=== PATIENT | female | born 1975 | race Caucasian/White ===

== ENCOUNTER 2019-10-15 01:58 | Outpatient (CLI) | payer OTHER, SELFPAY ==
--- NOTE | 2019-10-15 08:52 | DI.MAMMO_ITS ---
EXAM: MAMMO SCREENING CLINICAL HISTORY: screening, Z12.39 TECHNIQUE: Mammograms were interpreted according to the usual protocol including computer analysis w InfraReDx CAD system, tomosynthesis and C-view imaging. FINDINGS: The breasts are of moderate density with fairly symmetrical distribution of fibroglandular tissue. N o dominant mass or clumped microcalcification is identified in either breast. Current examination is compared with previous examinations including October 2016 and there has been no gross interval collins ge in appearance in comparison with the previous studies. IMPRESSION: No specific evidence of malignancy at this time. Routine screening examinations are suggested at year ly intervals in this age group according to the ACS ACR guidelines. Category 1. Breast density, categ ory B. BI-RADS Cat 1 - Negative. Breast Density - Category B - Scattered areas of fibroglandular density.
[2019-10-15 10:33] LABS: ALT 49 U/L (14-59); AST 17 U/L (15-37); Alkaline Phosphatase 83 U/L (46-116); BUN 12 mg/dL (7-18); Bilirubin, Total 0.5 mg/dL (0.2-1.0); Calcium 9.5 mg/dL (8.5-10.1); Calculated LDL 101 mg/dL; Chloride 105 mmol/L (98-107); Cholesterol 172 mg/dL (<200); Estimated GFR 59.69 (mL/min/1.73m2); Glucose 105 mg/dL (74-106); HDL Cholesterol 31 mg/dL (40-60); Potassium 4.4 mmol/L (3.5-5.1); Sodium 145 mmol/L (136-145); Total Protein 7.6 g/dL (6.4-8.2); Triglyceride 202 mg/dL (<150)
[2019-10-15 10:37] LABS: Hemoglobin A1C 5.9 % (3.8-5.6)
== END 2019-10-15 02:18 ==
PROVIDERS: PCP Nurse Practitioner; Visit Provider Nurse Practitioner
DX: Z12.31 Encounter for screening mammogram for malignant neoplasm of breast (principal); E78.5 Hyperlipidemia, unspecified; R73.03 Prediabetes
CPT/HCPCS: 36415; 77063; 77067; 80053; 80061; 83036

== ENCOUNTER 2022-07-26 03:28 | Emergency (ER) | payer OTHER, SELFPAY ==
--- NOTE | 2022-07-26 03:30 | DI.RAD_ITS ---
Exam(s) XR SHOULDER RT COMPLETE 2+V EXAM: XR SHOULDER RT COMPLETE 2+V CLINICAL HISTORY: fall, pain at prox humerus. TECHNIQUE: 2D digital imaging was performed of the right shoulder. Five images were obtained. AP, Grashey, Y-view and axillary views were obtained. COMPARISON: No exams were available for comparison FINDINGS: BONES: No acute fracture is present. No bony destructive lesion is seen. JOINTS: No dislocation present. There are degenerative changes seen at the acromioclavicular joint. SOFT TISSUE: Normal. IMPRESSION: No acute fracture or dislocation. DATA REPOSITORY: RADIATION DOSE DELIVERED:
[2022-07-26 03:43] VITALS: BP 159/91; PULSE 88; RESP 16; TEMP 37.1; O2SAT 96
[2022-07-26] MEDS: Lidocaine 5% Patch 1 PATCH TP (04:00)
[2022-07-26] MEDS: Ibuprofen 800 MG TAB PO (04:00)
--- NOTE | 2022-07-26 04:12 | ED.GENADUL_ITS ---
Discharge Plan Disposition Patient Disposition: HOME Condition: Good Discharge Details Clinical Impression: Sprain of right shoulder Primary Care Provider: Charity Xavier ED Provider: Jose Antonio Holland Home Meds and New Rx's Prescriptions: No Action atorvastatin 40 mg tablet 40 mg PO DAILY Qty: 90 0RF bupropion HCl [Wellbutrin XL] 300 mg tablet extended release 24 hr 300 mg PO QAM Qty: 90 0RF omeprazole 20 mg capsule,delayed release(DR/EC) 20 mg PO DAILY Qty: 90 0RF Discharge Instructions Instructions: Shoulder Sprain (ED) Additional Instructions: At this time there is no clear evidence of fracture on your x-ray. I suspect you have have irritation of your bursa and contusion of your bone and irritation of the muscles and tendons around your shoulder. Please use ice, Tylenol and Motrin as needed for pain. It will likely take a few weeks for your symptoms to resolve. Please follow-up closely with your environmental education specialist if your symptoms persist or worsen. Avoid any aggressive use movement or lifting with the arm. Make sure that your arm continually moves of the next few days to prevent any frozen shoulder syndrome. If you notice any worsening of your symptoms, or any new symptoms such as vomiting, diarrhea, fever, chills, shortness of breath, chest pain, numbness, weakness, or fainting , please return immediately to the emergency department for reevaluation. Please follow up with your primary care provider as soon as possible for reassessment and reevaluation. As always, it was a pleasure participating in your medical care today. Stand Alone Forms: Work Release Referrals: Charity Xavier, LOUIE [Primary Care Provider] - Medical Decision Making This is a pleasant 47-year-old female who is right-hand dominant who presents today for right shoulder pain. About 6 hours prior to arrival the patient was walking her dog when the dog suddenly pulled and the patient fell forward landing on her right shoulder onto the steps. She only hit her right shoulder. She had some mild pain at that time, and did hear a pop on impact. She is able to move her arm well though, and did not think much of it. However over the next few hours the pain notably worsened, specifically with movement. She did take Tylenol but this did not improve her symptoms at all. As the night went on her symptoms worsened, so she came to the ER for further assessment. When her arm is at rest the pain is mild. She denies any numbness or tingling. No chest pain or head pain. No other complaints at this time. Exam demonstrates tenderness at the proximal component of the humerus. Pain notably worsened with external rotation and abduction. No signs of significant deformity otherwise. Distal exam demonstrates normal sensation and movement and normal neurovascular exam. Suspect mild bursitis or rotator cuff injury. Fracture less likely. We will get an x-ray for further assessment, given Lidoderm patch and Motrin. 4:41 AM No clear evidence of fracture or dislocation. Patient stable. Remains n eurovascularly intact. Patient will be discharged with recommendations for continued NSAID use and ice. Suspect mild bursa irritation and joint irritation without fracture. Will recommend Tylenol, Motrin and ice. We will give sling for use as needed, but we also warned the patient of the importance of continued movement to prevent any frozen shoulder syndrome. At the patient's symptoms persist we did discuss importance of follow-up with orthopedics. I have extensively reviewed the treatment plan and discharge instructions with the patient. I have addressed all patient concerns at this time. The patient was made aware of what symptoms to monitor for that would warrant a return to the emergency department. Discussed the plan with the patient, they demonstrate verbal understanding and agreement with our assessment and plan at this time. The documentation in this chart was dictated using [employer]te[employer] dictation software. Please excuse any dictation errors. FINDINGS: Bones/joints: No fractures are identified. Acromioclavicular and glenohumeral alignment are anatomic. Joint spaces are maintained. The humeral head is not high-riding. Soft tissues: Unremarkable. IMPRESSION: No fracture or malalignment in the right shoulder. Thank you for allowing us to participate in the care of your patient. Dictated and Authenticated by: Erlinda Alexander MD 07/26/2022 6:50 AM Eastern Time ([place] & [place]) HPI General Date/Time Provider Initiated Documentation: 07/26/22 03:37 . HPI Narrative: This is a pleasant 47-year-old female who is right-hand dominant who presents today for right shoulder pain. About 6 hours prior to arrival the patient was walking her dog when the dog suddenly pulled and the patient fell forward landing on her right shoulder onto the steps. She only hit her right shoulder. She had some mild pain at that time, and did hear a pop on impact. She is able to move her arm well though, and did not think much of it. However over the next few hours the pain notably worsened, specifically with movement. She did take Tylenol but this did not improve her symptoms at all. As the night went on her symptoms worsened, so she came to the ER for further assessment. When her arm is at rest the pain is mild. She denies any numbness or tingling. No chest pain or head pain. No other complaints at this time. Related Data Home Medications Medication Instructions Recorded Confirmed atorvastatin 40 mg tablet 40 mg PO DAILY #90 tabs 03/15/21 07/26/22 bupropion HCl 300 mg 24 hr tablet, 300 mg PO QAM #90 tabs 03/15/21 07/26/22 extended release (Wellbutrin XL) omeprazole 20 mg capsule,delayed 20 mg PO DAILY #90 caps 03/15/21 07/26/22 release Previous Rx's Medication Instructions Recorded atorvastatin 40 mg tablet 40 mg PO DAILY #90 tabs 03/15/21 bupropion HCl 300 mg 24 hr tablet, 300 mg PO QAM #90 tabs 03/15/21 extended release (Wellbutrin XL) omeprazole 20 mg capsule,delayed 20 mg PO DAILY #90 caps 03/15/21 release Allergies Allergy/AdvReac Type Severity Reaction Status Date / Time latex Allergy Intermediate rash Verified 07/26/22 03:45 General Stated Complaint: Orthopedic LETTY: 4 Review of Systems All systems reviewed & are unremarkable except as noted in HPI and below PFSH All Active Problems (Updated 07/26/22 @ 04:40 by Jose Antonio Holland DO) Sprain of right shoulder (Acute) Encounter for screening for other viral diseases (Acute) Trigger finger of right hand (Acute) Routine medical exam (Acute) Obesity (Chronic) Daytime somnolence (Acute) Snoring (Acute) Encounter to establish care (Acute) Prediabetes (Acute) Plantar fasciitis (Acute) Pyelonephritis (Acute) GERD (gastroesophageal reflux disease) (Chronic) Endometriosis (Chronic) Bursitis of shoulder (Acute) Backache (Acute) Tobacco use disorder (Acute) Hyperlipidemia (Acute) Depression (Chronic) Surgical History History of cholecystectomy History of hysterectomy (~1998) with left oophorectomy, secondary to endometriosis History of umbilical hernia Family History Brother Substance abuse Alcohol abuse Mother Diabetes Hypertension Fibromyalgia Father Heart disease Maternal Grandmother Vascular dementia Maternal Grandfather Emphysema, unspecified Paternal Grandmother Asthma Heart attack Paternal Grandfather Diabetes History of heart valve replacement Social History Smoking/Tobacco Use Status: Current every day Tobacco Type: cigarettes Smoking packs per day: 0.5 Smoking cigarettes per day: 10.0 Years smoked: 20 Smoking pack-years: 10.00 Quit status: considering quitting Smoking risk assessment performed?: Yes Alcohol Intake: current Alcohol Intake frequency: holidays/special occasions only Drug use: Never Substance use type: does not use Adopted: No Caregiver/Support person: No Foster care: No Household members: spouse, children and other Details: Grandson Housing: house Communication Needs: None Education Level: college Details: Associates Do you need help understanding health information?: Never current occupation: EMBEDDED SOFTWARE PROGRAMMER, [employer] Sexually active: Yes Do you think of yourself as: straight/heterosexual Current gender identity: female What type of physical activity do you participate in: walking Duration: 30-45 minutes/day Frequency: daily Seatbelt use: always Drive intox or ride w/intox entry level truck driver: No Water heater temp set <120 deg: Yes Working smoke detector in home: Yes Fire extinguisher in home: Yes Carbon monox detector in home: Yes Firearms in home: Yes Firearms unloaded and locked: Yes Do you feel safe at home: Yes Do you feel safe in your relationship?: Yes Exam Narrative Exam Narrative: 1.Const: Well-nourished, Well-developed, appearing stated age 2.Eyes: PERRL, no conjunctival injection, and symmetrical lids. 3.ENT: Atraumatic external nose and ears. Moist MM. Neck: Symmetric, trachea midline, No thyromegaly. 4.CVS: +S1/S2, No murmurs or gallops. Peripheral pulses 2+ and equal in all extremities. Brisk capillary refill in all extremities. 5.RESP: Unlabored respiratory effort. Clear to auscultation bilaterally. No wheezes rales or rhonchi 6.GI: Soft, Nontender/Nondistended, No hepatosplenomegaly. No guarding or rebound. 7.MSK: Right shoulder demonstrates no bruising or swelling. Mild tenderness at the proximal component of the humerus. No tenderness in the midshaft or distal humerus or forearm or hand. No clavicular or significant scapula tenderness. Patient does have pain with external rotation of the shoulder and abduction of the shoulder. No significant pain with anterior posterior movement internal rotation or abduction. 8.Skin: Warm, Dry. No rashes or lesions. 9.Neuro: technology methodology consultant II-XII grossly intact. Sensation grossly intact, no focal neurologic deficits. 10.Psych: (AAO) x3. Appropriate mood and affect Course Vital Signs Vital signs: Vital Signs Temperature 37.1 C 07/26/22 03:43 Pulse 88 07/26/22 03:43 Respiratory Rate 16 07/26/22 03:43 Blood Pressure 159/91 H 07/26/22 03:43 Pulse Oximetry 96 07/26/22 03:43 Temperature 37.1 C 07/26/22 03:43 Temperature Source Oral 07/26/22 03:43 Pulse 88 07/26/22 03:43 Respiratory Rate 16 07/26/22 03:43 Respiratory Effort 07/26/22 03:43 Blood Pressure 159/91 H 07/26/22 03:43 Blood Pressure Position Sitting 07/26/22 03:43 Pulse Oximetry 96 07/26/22 03:43 Oxygen Delivery Method Room Air 07/26/22 03:43 Oxygen Flow Rate 0 07/26/22 03:43 Pain Level 10 07/26/22 03:43
--- NOTE | 2022-07-26 06:51 | DI.VRAD_ITS ---
PROCEDURE INFORMATION: Exam: XR Right Shoulder Exam date and time: 07/26/2022 4:02 AM Age: 47 years old Clinical indication: Injury or trauma; Fall; Blunt trauma (contusions or hematomas); Shoulder; Right; Additional info: Fall, pain TECHNIQUE: Imaging protocol: Radiologic exam of the Right shoulder. Views: 2 or more views. COMPARISON: No relevant prior studies available. FINDINGS: Bones/joints: No fractures are identified. Acromioclavicular and glenohumeral alignment are anatomic. Joint spaces are maintained. The humeral head is not high-riding. Soft tissues: Unremarkable. IMPRESSION: No fracture or malalignment in the right shoulder. Dictated and Authenticated by: Erlinda Alexander MD. Ordering:DENISE Brady MD
== END 2022-07-26 04:55 | disposition home or self-care (01) ==
PROVIDERS: Emergency Provider Student in an Organized Health Care Education/Training Program; PCP Nurse Practitioner
DX: S43.401A Unspecified sprain of right shoulder joint, initial encounter (principal); W18.30XA Fall on same level, unspecified, initial encounter; Y93.K1 Activity, walking an animal
CPT/HCPCS: 99283; 73030; 99282

== ENCOUNTER → 2022-08-16 01:46 | Outpatient (CLI) | payer OTHER, SELFPAY ==
--- NOTE | 2022-08-16 07:30 | DI.MRI_ITS ---
Exam(s) MR UPPER JOINT RT WO CLINICAL HISTORY: traumatic weakness,traumatic tear rt rotator cuff, s46.011a. TECHNIQUE: Multiplanar multisequence MRI was performed. COMPARISON: None FINDINGS: MR examination of the shoulder was performed according to the usual protocol. There is a small effusion of the glenohumeral joint. Small quantity of fluid in the subacromial subd eltoid bursa. Bones and labrum: There are cystic changes of the greater tuberosity of the humerus presumably on a d egenerative basis. There are moderate hypertrophic changes of the acromioclavicular joint.. Possibl e anterior labral tear noted period. There is probable full-thickness tear of distal subscapularis tendon,there is abnormal signal in the rotator interval as well and medial displacement of biceps tendon is noted also consistent with a ro tator interval tear. The subscapularis tear appears complex and predominantly involves the distal pe n 8 insertion region period there may be retraction of portions of the subscapularis tendon period. Supraspinatus and infraspinatus tendons show moderately abnormal signal with multiple small focal are as of apparent intra cysts substance tearing. Additionally there is an apparent distal tear of the s upraspinatus footprint which is about 9 millimeters in width and which appears to be a full-thickness tear period no retraction of the supraspinatus or infraspinatus noted period . Biceps tendon and anchor: Biceps tendon is medially displaced from the bicipital groove but shows jeramy ssly normal signal with no significant tear. Biceps anchor appears intact.. IMPRESSION: Complex rotator cuff tear as described above involving portions of subscapularis, supraspinatus, and infraspinatus tendons as well as rotator interval period. Possible partial retraction of subscapular is,full-thickness non retracted tear of supraspinatus. Partial-thickness tear of infraspinatus .. Marked associated medial displacement of biceps tendon which appears intrinsically intact. DATA REPOSITORY:
== END ==
PROVIDERS: PCP Nurse Practitioner; Visit Provider Student in an Organized Health Care Education/Training Program
DX: S46.011A Strain of muscle(s) and tendon(s) of the rotator cuff of right shoulder, initial encounter (principal); X58.XXXA Exposure to other specified factors, initial encounter
CPT/HCPCS: 73221

== ENCOUNTER 2022-09-10 05:52 | Day surgery (SDC) | payer OTHER, SELFPAY ==
[2022-09-10] VITALS (12 sets, daily range): BP systolic 87–148; BP diastolic 44–84; PULSE 71–95; RESP 14–21; TEMP 36–36.7; O2SAT 91–98; BMI 39.9
--- NOTE | 2022-09-10 06:49 | W.ANESPRE ---
General Info Date of Service Date Performed: 09/10/22 Height: 5 ft 3 in Weight: 102.1 kg Body Mass Index (BMI): 39.9 Surgical Procedure: Operation Date: 09/10/22 07:40 Proposed Procedure Side Surgeon p Shoulder Rotator Cuff Arthroscopic w/Extensive Debridement, Biceps Tenodesis, Subacromial Decompression, Distal Clavicle Excision Right Luis Arellano MD Meds Allergies and Home Medications Allergies Allergy/AdvReac Type Severity Reaction Status Date / Time latex Allergy Intermediate rash Verified 09/10/22 06:20 Home Medication Medication Instructions Recorded bupropion HCl 300 mg 24 hr tablet, 300 mg PO QAM #90 tabs 03/15/21 extended release (Wellbutrin XL) atorvastatin 40 mg tablet 40 mg PO HS 09/04/22 omeprazole 20 mg capsule,delayed 20 mg PO HS 09/04/22 release acetaminophen 650 mg 1,300 mg PO Q8H 09/10/22 tablet,extended release aspirin 81 mg tablet,delayed 81 mg PO DAILY prevent blood clot 09/10/22 release 7 days #7 tabs naproxen 250 mg tablet 250 - 500 mg PO BID PRN #40 tabs 09/10/22 oxycodone 5 mg tablet 5 - 10 mg PO Q4H PRN moderate to 09/10/22 severe pain #18 tabs Current Visit Medications: Current Medications Generic Name Dose Route Start Last Admin Trade Name Freq PRN Reason Stop Dose Admin Ringer's Solution 1,000 mls @ 30 mls/hr 09/10/22 06:00 IV 10/07/22 23:59 INFUSION SOCO Cefazolin Sodium/Dextrose 2 gm in 50 mls @ 100 mls/hr 09/10/22 06:00 Ancef Duplex IVPB 10/07/22 23:59 PREOP SOCO IV Miscellaneous Supplies 1 each 09/10/22 06:00 Iv Access IV 10/07/22 23:59 DIRECTED SOCO Sodium Chloride 0 ml 09/10/22 06:00 Normal Saline Flush 10 Ml Syr IV 10/07/22 23:59 PRN PRN Sodium Chloride 0 ml 09/10/22 06:00 Normal Saline 10 Ml Vial IJ 10/07/22 23:59 DIRECTED PRN Sterile Water 0 ml 09/10/22 06:00 Water,Injection,Sterile 10 Ml Vial IJ 10/07/22 23:59 DIRECTED PRN PFSH Active Problems Active Problems: Problem Status Onset Code Depression F32.9 Hyperlipidemia E78.5 Tobacco use disorder F17.200 Backache M54.9 Bursitis of shoulder M75.50 Endometriosis N80.9 GERD (gastroesophageal reflux disease) K21.9 Pyelonephritis N12 Plantar fasciitis M72.2 Prediabetes R73.03 Encounter to establish care Z76.89 Snoring R06.83 Daytime somnolence R40.0 Obesity E66.9 Routine medical exam Z00.00 Trigger finger of right hand M65.30 Encounter for screening for other viral diseases Z11.59 Traumatic tear of right rotator cuff 07/25/22 S46.011A Pain in right acromioclavicular joint M25.511 Tendonitis of long head of biceps brachii of right shoulder M75.21 Impingement syndrome of right shoulder M75.41 Medical History Medical History (Updated 09/10/22 @ 07:02 by Luis Arellano MD) Hx of dysfunctional uterine bleeding pt. reports surgical procedure to scrap the lining Impingement syndrome of right shoulder Obstructive sleep apnea on CPAP Pain in right acromioclavicular joint Tendonitis of long head of biceps brachii of right shoulder Surgical History Surgical History History of cholecystectomy History of hysterectomy (~1998) with left oophorectomy, secondary to endometriosis History of umbilical hernia Tobacco Smoking/Tobacco Use Status: Current every day Tobacco Type: cigarettes Smoking packs per day: 0.5 Smoking cigarettes per day: 10.0 Years smoked: 20 Smoking pack-years: 10.00 Alcohol Alcohol Intake: current Alcohol intake frequency: holidays/special occasions only Alcohol type: hard liquor Substance Use Substance use: Never Substance use type: does not use Vital Signs and Lab Results Vital Signs Most Recent Vital Signs in EMR: Most Recent Vital Signs Temp Pulse Resp BP Pulse Ox 36.4 C L 81 18 145/84 H 97 09/10/22 06:29 09/10/22 06:29 09/10/22 06:29 09/10/22 06:29 09/10/22 06:29 Lab Results Blood Type / Crossmatch: No Data to Display Complete Blood Count: No Data to Display Complete Metabolic Panel: No Data to Display Liver Function Panel: No Data to Display Coagulation Panel: No Data to Display Cardiac Panel: No Data to Display Arterial Blood Gas: No Data to Display Venous Blood Gas: No Data to Display Pancreas Panel: No Data to Display Thyroid Panel: No Data to Display Infectious Disease: No Data to Display Blood Cultures: No Data to Display Toxicology Panel: No Data to Display Panel: No Data to Display Anesthesia Assessment and Plan Anesthesia History Personal History: No History of Anesthesia Complications Family History: No Family History of Anesthesia Complications Exercise Tolerance Exercise Tolerance: Metabolic Equivalents>4 Pertinent Negatives Pertinent Negatives: No Symptoms of GERD, No Major Cardiovascular Symptoms or Complaints, No Major Pulmonary Symptoms or Complaints and No History of CVA/TIA Cardiac & Pulmonary Exam Cardiac Exam: Normal S1/S2 Heart Sounds Pulmonary Exam: Clear Bilateral Breath Sounds Implantable Cardiac Device Does patient have a Pacemaker or an ICD?: No Airway Exam Known Difficult Airway: No Mallampati Class: 2 Mouth Opening: Normal (> 3cm) Thyromental Distance: Greater than 3 cm Neck Range of Motion: Full ROM Neck Circumference: Normal Teeth Condition: Normal Dentition ASA Classification ASA Score: ASA 3 Emergency Case?: No NPO Status NPO Status: NPO Clears >2 hours, Solids >8 hours Status Status: Not Relevant due to Medical History Anesthesia Plan Resuscitation Status: Full Code Anesthesia Technique: General Anesthesia Airway Planned: Endotracheal Tube Pain Management: Surgeon and patient request nerve block Monitors Used: Standard Monitors
[2022-09-10] MEDS: Lactated Ringers 1,000 ML 30 ML IV (07:00)
--- NOTE | 2022-09-10 07:30 | ROE_ITS ---
Date of service: 09/10/22 Time of Service: 07:30 Operative Note Operative Note DATE OF PROCEDURE: 09/10/22 PRE-OP DIAGNOSIS: Right: 1. Rotator cuff tear 2. LHB tendinopathy 3. Bursitis 4. AC joint arthritis POST-OP DIAGNOSIS: same PROCEDURE: Right: 1. Rotator cuff repair, CPT# 02246. This involved repair of the subscapularis and supraspinatus using anchors and sutures to reattach the rotator cuff back to the footprint of the lesser and greater tuberosity. 2. Arthroscopic biceps tenodesis, CPT# 41105. This involved arthroscopically suturing and reattaching the long head of the biceps tendon to the proximal humerus at the superior margin of the bicipital groove with a screw at the correct tension. 3. Extensive debridement, CPT# 94773. This involved using arthroscopic hand instruments, power instruments, and radiofrequency instruments to release the long head of the biceps tendon and debride areas of labral tearing, synovitis, and release MGHL working within the glenohumeral joint anteriorly, superiorly and posteriorly. 4. Subacromial decompression with partial acromioplasty, CPT# 01434. This involved using arthroscopic power instruments and a radiofrequency wand to comp lete a bursectomy and smooth the undersurface of the acromion to open the acromiohumeral space and provide bone marrow stimulation for healing. 5. Arthroscopic distal clavicle excision, CPT# 74437. This involved arthroscopically exposing the underside of the acromioclavicular joint, smoothing out bone spurs, and removing approximately a few millimeters of the distal clavicle so there was no bone left engaging the acromion. The teacher's assistant was medically required in order to help assist in techniques above, which require positioning the arm, holding the arthroscope, and manipulating multiple instruments and sutures at the same time. This cannot be done without the help of an experienced teacher's assistant. SURGEON: Luis Arellano WATER TREATMENT OPERATOR: Vania Castro ANESTHESIA TYPE: Local By Surgeon, General LMA/ETT and Primary Nerve Block Refer to Anesthesia Record ESTIMATED BLOOD LOSS: 10 PATHOLOGY: none sent COMPLICATIONS: None Patient was transported to: PACU Patient's condition: stable Implants: Arthrex: 4.75mm SwiveLocks x 5 Indications: The patient was diagnosed with the above conditions and appropriately indicated for surgical intervention. Please see complete medical record for details. Findings: Exam under anesthesia: Full range of motion, no instability Glenohumeral joint: Significant anterior and superior synovitis. Significant long head biceps partial articular tearing and fraying at the anchor with medial subluxation through an upper margin subscapularis moderately retracted tear. Full-thickness supraspinatus tear partially involving the infraspinatus. Subacromial space: Significant bursitis. Impinging acromion with distal clavicle. Full-thickness supraspinatus with mild retraction and partial involvement it is related to sort wrapped around near the supraspinatus. Procedure Description: In the operating room, general anesthesia was induced. Bilateral shoulders were examined. The patient was positioned in the beachchair position. All bony prominences were well-padded. Preoperative antibiotics were administered. The shoulder was prepped and draped in the usual sterile fashion. The correct patient, procedure, and side of the procedure were all verified prior to incision. Starting through the posterior portal a standard complete diagnostic arthroscopy was performed of the glenohumeral joint including inspection of the long head of the biceps, anterior and superior labrum, subscapularis tendon, supraspinatus and infraspinatus tendons, and axillary recess. The glenoid and humeral head cartilage as well as the posterior labrum were inspected from an anterior viewing portal. Significant findings and interventions noted above. Significant biceps partial tear and fraying with rotator interval injury and upper half subscapularis biceps subluxated into mildly retracted tearing. Suture tape fiber link was used to secure the biceps tendon. The FiberTape was shuttled through the subscapularis tear. The undersized punch was used and the repair is combined FiberTape subscap and loop n tack biceps tenodesis to an anterior anchor. Starting through the posterior portal, the arthroscope was directed into the subacromial space. A lateral 50 yard line lateral portal was created. A combination of power instruments and a radiofrequency ablator were used to debride bursitis anteriorly, posteriorly, and laterally as well as expose and smooth bone spurring on the undersurface of the acromion. The coracoacromial ligament was partially released. The bursectomy was completed viewing laterally and working from posteriorly and the rotator cuff was thoroughly inspected with findings noted above. The anterior portal was redirected towards the undersurface of the AC joint. A shaver and electrocautery device were used to clear soft tissue from the undersurface of the AC joint. The distalmost 5 mm of the distal clavicle was then removed and smoothed. Care was taken to alternate between working through the anterior portal and viewing through the anterior portal to ensure that proper amount of bone was removed and there was no engaging bone left behind especially superiorly. Large, only mildly retracted supraspinatus tear with involvement traversing into the infraspinatus where would typically wrap around the greater tuberosity. Greater tuberosity was thoroughly prepared to optimize bone tendon healing. Modified speed bridge using undersized punch due to greater tuberosity bone cysts with knotless ripstop horizontal mattress posterior medial row and additional link prior lateral row between the anchors and posteriorly incorporating infraspinatus to the lateral row. Stable through range of motion with good preparation greater tuberosity and tissue reapproximation without undue tension. The shoulder was drained of arthroscopic fluid. All portal sites were copiously irrigated. These incisions were closed using 3-0 Monocryl in a buried fashion and then covered with Mastisol, Steri-Strips, Xeroform, dry gauze, and ABDs. The dressings were covered and secured with Medipore tape. The operative extremity was placed into a sling for immobilization. The patient awoke from anesthesia without complication and was transferred to the recovery room in a stable condition.
[2022-09-10] MEDS: ceFAZolin 2 GM/50 ML BAG IVPB (07:34)
[2022-09-10] MEDS: Bupivacaine 0.5% Pres-Free W/EPI 10 ML VIAL (08:12)
[2022-09-10] MEDS: EPINEPHrine 30 MG/30 ML VIAL (08:12)
--- NOTE | 2022-09-10 08:20 | W.ANESNERVE ---
Nerve Block Single Injection Procedure Date and Time Date Performed: 09/10/22 Procedure Start: 08:21 Location Where Procedure Performed Procedure Location: Day Surgery Unit Reason Performed: Postoperative Analgesia Requesting Provider: Luis Arellano Timeout Performed Timeout Performed: Yes Monitoring Used ECG, Blood Pressure and SpO2 Sterility Sterility: Hand Hygiene, Surgical Cap, Surgical Mask, Sterile Gloves and Chlorhexidine Sedation Given During Procedure Sedation Given (Indicate Dose Given): Versed IV Dose:: 2 mg Patient Mental Status Patient Mental Status: Sedate with meaningful communication Nerve Block 1st Nerve Block: Laterality: Right Block Type: Interscalene Needle / Catheter Used: 100mm SonoPlex II Local Anesthetic Bolus (Indicate Dose Given): Lidocaine used for local infiltration of skin, Injected in 3-5ml increments after negative blood aspiration, Bupivacaine 0.5% Dose:: 5 ml and Exparel Dose:: 10 ml Additives (Indicate Dose Given): None Ultrasound: Sterile probe cover and gel used Ultrasound Image Saved?: Yes Nerve Stimulator: Not Used Paresthesia: None Procedure Tolerated: No Complications and Patient tolerated well Procedure Outcome: Successful Performed By: Eliceo Manzanares
--- NOTE | 2022-09-10 09:59 | PDOC.DSDIS_ITS ---
Date of service: 09/10/22 Time of Service: 10:00 Discharge Plan Disposition Patient Disposition: HOME Condition: Good Discharge Details Attending Provider: Luis Arellano Primary Care Provider: Charity Xavier Home Meds and New Rx's Prescriptions: New naproxen 250 mg tablet 250 - 500 mg PO BID PRNQty: 40 0RF Rx Instructions: take with a meal aspirin 81 mg tablet,delayed release (DR/EC) 81 mg PO DAILY 7 Days Qty: 7 0RF oxycodone 5 mg tablet 5 - 10 mg PO Q4H MDD 30 mg PRN (Reason: moderate to severe pain) Qty: 18 0RF Continued bupropion HCl [Wellbutrin XL] 300 mg tablet extended release 24 hr 300 mg PO QAM Qty: 90 0RF atorvastatin 40 mg tablet 40 mg PO HS omeprazole 20 mg capsule,delayed release(DR/EC) 20 mg PO HS acetaminophen 650 mg Tablet Extended Release 1,300 mg PO Q8H Discontinued ibuprofen 200 mg Tablet 600 mg Discharge Instructions Additional Instructions: Surgery: Right shoulder arthroscopy with rotator cuff repair (subscapularis and supraspinatus), biceps tenodesis, extensive debridement, distal clavicle excision, and subacromial decompression. Activity: For 6 weeks, you should keep your arm at your side in a neutral position at all times except for physical therapy. Do not try to lift or raise your arm using your own muscles. You should use the sling whenever you are out of the house. You may have to adjust the abduction pillow or remove it for comfort. At home it is best to remove the sling and rest the arm on a pillow at your side or support the operative side with your other hand. You may allow the arm to dangle at your side. A physical therapy prescription will be sent electronically to begin in about 3 weeks. Prescriptions: Aspirin 81 mg take 1 daily to prevent a blood clot for 7 days Naproxen 250 mg take 1-2 every 12 hours with a meal as needed for moderate pain Oxycodone 5 mg take 1-2 every 4-6 hours as needed for severe pain You may use petv-wnl-xorxwva Tylenol (acetaminophen) as needed for mild pain. These pain medications may be taken all at once or in different combinations as needed. Also, recommend Colace (docusate) as a stool softener as surgery and pain medicine cause constipation. You may try xlit-akg-hijnbis diphenhydramine (Benadryl) 25-50 mg nightly as a sleep aid Dressings: Remove shoulder bandage after 3 days. Leave the sticky Steri-Strips in place until they fall off or remove them after you shower. Cover the incis ions with Band-Aids or leave them open to air. You may shower after 5 days. Follow-up: 10-[address] Arellano You may take off the leg compression stockings this evening at home. You may also leave them on a few days longer if you have a history of leg swelling or edema. Let us know right away if you develop any redness, drainage, fevers, chest pain, or trouble breathing. Do not drink alcohol or drive for at least 24 hours after anesthesia. Please call the office during business hours with any questions or concerns. DS: Diagnosis Discharge Diagnosis (1) Traumatic tear of right rotator cuff: Status: Acute
--- NOTE | 2022-09-10 15:08 | W.ANESPOSTOP ---
Postoperative Evaluation Date, Time and Location Date Performed: 09/10/22 Time Performed: 15:08 Patient Location: Day Surgery Unit Vital Signs Most Recent Imported Vital Signs: Most Recent Vital Signs Temp Pulse Resp BP Pulse Ox 36.1 C L 78 17 119/70 94 09/10/22 11:52 09/10/22 11:52 09/10/22 11:52 09/10/22 11:52 09/10/22 11:52 Pain Score Most Recent Pain Score: Most Recent Pain Score Pain Level 0 09/10/22 11:52 Assessment Mental Status: Awake (Alert & Oriented to Patient Baseline) Airway and Respiratory Function: Patent airway with normal (patient baseline) respiratory exam Cardiovascular Function: Hemodynamically Stable Hydration Status: Adequately Hydrated Nausea & Vomiting: No Nausea or Vomiting Pain: Pt. Denies Any Pain Peripheral Nerve Block: Patient did not receive a nerve block
== END 2022-09-10 12:42 | disposition home or self-care (01) ==
PROVIDERS: PCP Nurse Practitioner; Visit Provider Student in an Organized Health Care Education/Training Program
PROC: (CPT 29827; principal; 2022-09-10 07:30)
DX: S46.011A Strain of muscle(s) and tendon(s) of the rotator cuff of right shoulder, initial encounter (principal); M75.21 Bicipital tendinitis, right shoulder; M75.41 Impingement syndrome of right shoulder; M19.011 Primary osteoarthritis, right shoulder; X58.XXXA Exposure to other specified factors, initial encounter
CPT/HCPCS: 29827; 29828; 29826; 29824; 29823; 76942; J0690; J1100; J2250; J2405; J2704; J3010

== ENCOUNTER 2022-12-03 01:04 | Outpatient (CLI) | payer OTHER, SELFPAY ==
--- NOTE | 2022-12-03 06:45 | DI.MAMMO_ITS ---
Exam(s) MAMMO SCREENING EXAM: MAMMO SCREENING CLINICAL HISTORY: screening,Z12.39 TECHNIQUE: Mammograms were interpreted according to the usual protocol including computer analysis w [employer] CAD system, tomosynthesis and C-view imaging. COMPARISON: 2014 through 2019 FINDINGS: The breasts are composed of mainly fatty density , Breast Density category A. No suspicious masses or suspicious microcalcifications are seen. No skin thickening or abnormal axillary lymph nodes are seen. There has been no significant change from prior exams. IMPRESSION: BI-RADS Category 1, Negative mammogram Yearly screening mammography is recommended. Breast Density - Category A, fatty density. A negative radiographic report should not delay biopsy if a dominant or clinically suspicious mass is present. Up to ten percent of cancers are not identified on mammography. A negative report may reinforce clinical impression. Adenosis and dense breasts may obscure an underlying neoplasm. False positive reports average 6 to 10%. Patient will receive a letter notifying them of these results.
== END 2022-12-03 01:24 ==
LOC: DI 01:04
PROVIDERS: PCP Nurse Practitioner; Visit Provider Nurse Practitioner
DX: Z12.31 Encounter for screening mammogram for malignant neoplasm of breast (principal)
CPT/HCPCS: 77063; 77067

== ENCOUNTER 2023-01-09 01:56 | Outpatient (CLI) | payer OTHER, SELFPAY ==
[2023-01-09 07:34] LABS: HCT 44.2 % (36.0-46.0); HGB 15.1 g/dL (11.2-15.7); MCH 32.1 pg (27.0-33.0); MCHC 34.2 % (32.0-36.0); MCV 94 fL (80-95); MPV 9.1 fL (8.0-11.0); Platelet Count 277 10^3/uL (130-400); RDW 12.6 % (11.7-14.6); RDW-SD 43.6 fL
[2023-01-09 07:58] LABS: ALT 56 U/L (14-59); AST 23 U/L (15-37); Albumin 3.8 g/dL (3.4-5.0); Alkaline Phosphatase 86 U/L (46-116); BUN 14 mg/dL (7-18); Bilirubin, Total 0.3 mg/dL (0.2-1.0); CREATININE 1.1 mg/dL (0.55-1.02); Calcium 9.1 mg/dL (8.5-10.1); Calculated LDL 95 mg/dL (<100); Chloride 106 mmol/L (98-107); Cholesterol 161 mg/dL (<200); Glucose 130 mg/dL (74-106); HDL Cholesterol 35 mg/dL (40-60); Potassium 4.1 mmol/L (3.5-5.1); Sodium 142 mmol/L (136-145); Total Protein 7.7 g/dL (6.4-8.2); Triglyceride 155 mg/dL (<150)
[2023-01-09 08:02] LABS: Hemoglobin A1C 6.2 % (<5.7)
== END 2023-01-09 01:57 | disposition home or self-care (01) ==
LOC: LBO 01:56
PROVIDERS: PCP Nurse Practitioner; Visit Provider Nurse Practitioner
DX: E78.5 Hyperlipidemia, unspecified (principal); R73.03 Prediabetes; F17.210 Nicotine dependence, cigarettes, uncomplicated; E66.9 Obesity, unspecified
CPT/HCPCS: 36415; 80053; 80061; 85027; 83036

== ENCOUNTER 2023-12-27 14:52 | Outpatient (REF) | payer BC, SELFPAY ==
[2023-12-27 15:52] LABS: COVID-19 PCR Negative (Negative); Influenza A PCR Negative (Negative); Influenza B PCR Negative (Negative); RSV PCR Negative (Negative)
[2023-12-27 15:53] LABS: Source Nasopharynx
== END 2023-12-27 14:53 | disposition home or self-care (01) ==
LOC: NCHCN 14:52
PROVIDERS: PCP Nurse Practitioner; Referring Provider Physician Assistant Medical; Visit Provider Physician Assistant Medical
DX: R11.2 Nausea with vomiting, unspecified (principal)
CPT/HCPCS: 87637

== ENCOUNTER 2024-03-20 15:23 | Outpatient (CLI) | payer SELFPAY ==
[2024-03-23 11:06] LABS: TB Interpretation Negative (Negative); TB1 Ag minus Nil 0.04 IU/ml; TB2 Ag minus Nil 0.02 IU/mL
== END 2024-03-20 15:24 | disposition home or self-care (01) ==
LOC: LBO 15:24
PROVIDERS: PCP Nurse Practitioner; Visit Provider Nurse Practitioner Family
DX: Z02.1 Encounter for pre-employment examination (principal)
CPT/HCPCS: 36415; 86480

== ENCOUNTER 2024-07-21 00:44 | Outpatient (CLI) | payer OTHER, SELFPAY ==
--- NOTE | 2024-07-21 07:30 | DI.MAMMO_ITS ---
Exam(s) MAMMO SCREENING EXAM: MAMMO SCREENING CLINICAL HISTORY: screening,z12.39. TECHNIQUE: Bilateral full field digital CC and MLO mammographic images were obtained with 3D tomosyn thesis and utilizing computer aided detection (CAD). COMPARISON: Prior mammograms were reviewed. FINDINGS: There has been no significant change in the appearance and distribution of the fibroglandular tissue. Benign-appearing nodular densities in both breasts are unchanged from prior mammograms and have the a ppearance mostly benign intramammary lymph nodes. There are no new spiculated masses nor new malignant appearing microcalcification groups. There is no significant architectural distortion nor skin thickening-retraction. IMPRESSION: No radiographic evidence of malignancy. Stable benign-appearing findings. BI-RADS Category 2 - Benign Findings Breast Density - Category A - Almost entirely fatty Breast density Category C or D implies that the patient has dense breast tissue. Dense breast tissue can make it harder to find cancer on a mammogram. Dense breast tissue is also associated with an incr eased risk of breast cancer. This information about the result of the mammogram report was provided to the patient to raise their awareness. Use this report when you speak with the patient about their risks for breast cancer, which includes their family history. At that time, you may recommend additional screening tests (Ultrasoun d or MRI) as these tests may add significant information. A negative radiographic report should not delay biopsy if a dominant or clinically suspicious mass is present. Up to ten percent of cancers are not identified on mammography. A negative report may reinforce clinical impression. Adenosis and dense breasts may obscure an underlying neoplasm. False positive reports average 6 to 10%. Patient will receive a letter notifying them of these results.
== END 2024-07-21 01:04 ==
LOC: DI 00:44
PROVIDERS: PCP Nurse Practitioner; Visit Provider Nurse Practitioner
DX: Z12.31 Encounter for screening mammogram for malignant neoplasm of breast (principal); R73.03 Prediabetes; E78.5 Hyperlipidemia, unspecified
CPT/HCPCS: 77063; 77067

== ENCOUNTER 2024-11-27 13:28 | Outpatient (CLI) | payer OTHER, SELFPAY ==
--- NOTE | 2024-11-27 13:46 | DI.RAD_ITS ---
Exam(s) XR SHOULDER LT COMPLETE 2+V EXAM: XR SHOULDER LT COMPLETE 2+V CLINICAL HISTORY: Pain in lt shoulder, M25.512. TECHNIQUE: 2D digital imaging was performed. COMPARISON: CR,XR XR SHOULDER RT COMPLETE 2+V from 07/26/2022 FINDINGS: Five views No evidence of fracture or dislocation. No abnormal soft tissue calcifications. Subacromial space u nremarkable. No obvious degenerative changes in the glenohumeral and AC joints. Bone density is normal. No osseous lesions. IMPRESSION: No significant radiographic findings in the left shoulder. DATA REPOSITORY: RADIATION DOSE DELIVERED:
== END 2024-11-27 13:48 ==
LOC: DI 13:29
PROVIDERS: PCP Nurse Practitioner; Visit Provider Physician Assistant Medical
DX: M25.512 Pain in left shoulder (principal)
CPT/HCPCS: 73030

== ENCOUNTER 2024-12-30 01:49 | Outpatient (CLI) | payer OTHER, SELFPAY ==
--- NOTE | 2024-12-30 07:00 | DI.MRI_ITS ---
Exam(s) MR UPPER JOINT LT WO EXAM: MR UPPER JOINT LT WO CLINICAL HISTORY: L SHOULDER PAIN,LT ROTATOR CUFF TEAR,M75.102. TECHNIQUE: Multiplanar multisequence MRI was performed. COMPARISON: CR XR SHOULDER LT COMPLETE 2+V from 11/27/2024 FINDINGS: BONES: There is no fracture or contusion pattern. Nonspecific benign-appearing subchondral cyst in th e lateral aspect of the humeral head. JOINTS: There are cefo-it-iwpulpjl degenerative changes seen at the acromioclavicular joint. The gle nohumeral joint is normal. TENDONS: Supraspinatus: There is a full-thickness tear of the supraspinatus tendon near the musculotendinous j unction. There is a gap of approximately 2 cm. Infraspinatus: There is a small focus of hyperintense signal seen in the infraspinatus at the musculo tendinous junction. Subscapularis: Unremarkable. Teres Minor: Unremarkable. Biceps and [place]ro[place]: There is tendinosis of the long head of the biceps. MUSCLES: Unremarkable. GLENOID LABRUM: There is mild blunting of the posterior and superior labrum which may reflect degener ation. The remainder of the labrum is unremarkable. SOFT TISSUES: Unremarkable. LIGAMENTS: Unremarkable. OTHER: Subacromial and subdeltoid bursae are unremarkable. IMPRESSION: 1. There is a full-thickness tear of the supraspinatus tendon with a 2 cm gap at the musculotendinous junction. 2. Tendinosis of the long head of the biceps tendon. 3. Focus of hyperintense signal seen at the musculotendinous junction of the infraspinatus. This may represent a partial tear. 4. Degenerative changes seen at the acromioclavicular joint. DATA REPOSITORY:
== END 2024-12-30 02:09 ==
LOC: DI 01:50
PROVIDERS: PCP Nurse Practitioner; Visit Provider Student in an Organized Health Care Education/Training Program
DX: M75.122 Complete rotator cuff tear or rupture of left shoulder, not specified as traumatic (principal)
CPT/HCPCS: 73221